=== PATIENT | female | born 2000 | race Caucasian/White ===

== ENCOUNTER 2025-03-09 23:53 | Inpatient (IN) | payer SELFPAY ==
[2025-03-10 00:18] LABS: #Basophils 0.06 10x3/uL (0.0-0.2); #Eosinophils 0.15 10x3/uL (0.0-0.5); #Monocytes 0.86 10x3/uL (0.0-1.1); #Neutrophils 6.07 10x3/uL (1.5-8.4); %Basophils 0.5 % (0.0-2.0); %Eosinophils 1.4 % (0.0-6.0); %Lymphocytes 34.2 % (18.0-47.0); %Monocytes 7.9 % (0.0-10.0); %Neutrophils 55.5 % (40.0-75.0); Hematocrit 39.6 % (34.9-44.5); Hemoglobin 13.2 g/dL (12.0-15.5); Mean Corpuscular Hemoglobin 28.6 pg (27.0-33.0); Mean Corpuscular Volume 85.9 fL (81.6-98.3); Platelet Count 336 10x3/uL (150-450); Red Blood Cell (RBC) Count 4.61 10x6/uL (3.90-5.03); White Blood Cell (WBC) Count 10.92 10x3/uL (3.5-10.5)
[2025-03-10 00:32] LABS: Acetaminophen Less than 10 mcg/mL (Less than 10); Salicylate Less than 8.0 mg/dL (Less than 8.0)
[2025-03-10 00:33] LABS: ALT (SGPT) 16 U/L (Less than 34); AST (SGOT) 21 U/L (11-34); Albumin 4.1 g/dL (3.1-4.5); Alkaline Phosphatase 75 U/L (40-110); Anion Gap 15 mmol/L (10-20); BUN (Urea Nitrogen) 8 mg/dL (7.0-18.7); Bilirubin, Total 0.2 mg/dL (0.3-1.2); Calc. Creatinine Clearance 0 mL/min (70-130); Calcium 8.4 mg/dL (7.8-10.44); Carbon Dioxide 21 mmol/L (22-29); Chloride 111 mmol/L (98-107); Globulin 2.1 g/dL (2.4-3.5); Glucose 93 mg/dL (70-105); Potassium 3.6 mmol/L (3.5-5.1); Sodium 143 mmol/L (136-145)
[2025-03-10 01:10] LABS: Actual Bicarbonate (HCO3a) 21.8 mEq/L (22-28); Analyzer IN Cardio CS ER; Base Excess (BEa) -4.1 mEq/L (-2.0 to +3.0); CO2 Tension 42.9 mmHg (35.0-45.0); Calcium, Ionized (arterial) 1.14 mmol/L (1.12-1.30); Hematocrit-ABG 40 % (36.0-47.0); Hemoglobin (Hb) 13.7 g/dL (12.0-16.0); O2 Tension (PaO2), arterial 270.2 mmHg (80.0-100.0); Potassium - ABG Lab 3.89 mmol/L (3.70-5.30); Puncture Site Left Radial artery; pH, Arterial 7.324 (7.35-7.45)
[2025-03-10 01:13] LABS: ALV-art Gradient 32.675 mmHg (0-20)
[2025-03-10 01:18] LABS: Pregnancy Test - Urine (BHCG) Negative (Negative); Pregu Control Background? CLEAR/WHITE (CLR/WHITE); Pregu Control Bar Appear? YES (CONTROL BAR)
[2025-03-10 01:25] LABS: Cocaine Metabolite Screen Negative (Negative); THC/Cannabinoid Screen PRELIM POSITIVE (Negative); Tricyclic Screen Negative (Negative)
[2025-03-10 03:05] VITALS: BMI 24.8
[2025-03-10] MEDS ORDERED: NS 0.9% w/ 20 MEQ KCL 1,000 ML/1,000 ML BAG IV SCH (03:15)
[2025-03-10] MEDS ORDERED: Fentanyl BOLUS 100 ML IVPB PRN (04:30)
[2025-03-10] MEDS ORDERED: DISCONTINUE PREVIOUS NARCOTIC PAIN MEDICATIONS AND BENZODIAZEPINES FS SCH (04:30)
[2025-03-10] MEDS ORDERED: Propofol BOLUS 1,000 MG/100 ML VIAL IV PRN (04:30)
[2025-03-10 04:56] LABS: Actual Bicarbonate (HCO3a) 22.2 mEq/L (22-28); Analyzer IN Cardio CS ICU; Base Excess (BEa) -3.6 mEq/L (-2.0 to +3.0); CO2 Tension 43.0 mmHg (35.0-45.0); Calcium, Ionized (arterial) 1.17 mmol/L (1.12-1.30); Hematocrit-ABG 42 % (36.0-47.0); Hemoglobin (Hb) 14.2 g/dL (12.0-16.0); O2 Tension (PaO2), arterial 177.2 mmHg (80.0-100.0); Potassium - ABG Lab 4.04 mmol/L (3.70-5.30); Puncture Site Right Radial artery; pH, Arterial 7.331 (7.35-7.45)
[2025-03-10 04:59] LABS: ALV-art Gradient 18.600 mmHg (0-20)
[2025-03-10] MEDS ORDERED: Etomidate 40 MG (20 mL) VIAL ONE (05:00)
[2025-03-10] MEDS ORDERED: Rocuronium Bromide 10 MG/ML (10ML VIAL) ONE (05:00)
[2025-03-10] MEDS: Mupirocin 1 GM TUBE TP SCH (05:07)
[2025-03-10] MEDS ORDERED: FLU (Fluarix Triv) 25-26 (6MOS UP)/PF 45 MCG/0.5 ML Syringe IM ONE (06:00)
[2025-03-10 06:42] LABS: #Basophils 0.05 10x3/uL (0.0-0.2); #Eosinophils 0.08 10x3/uL (0.0-0.5); #Monocytes 0.77 10x3/uL (0.0-1.1); #Neutrophils 7.54 10x3/uL (1.5-8.4); %Basophils 0.4 % (0.0-2.0); %Eosinophils 0.7 % (0.0-6.0); %Lymphocytes 24.5 % (18.0-47.0); %Monocytes 6.8 % (0.0-10.0); %Neutrophils 67.0 % (40.0-75.0); Hematocrit 41.8 % (34.9-44.5); Hemoglobin 13.7 g/dL (12.0-15.5); Mean Corpuscular Hemoglobin 28.8 pg (27.0-33.0); Mean Corpuscular Volume 88.0 fL (81.6-98.3); Platelet Count 254 10x3/uL (150-450); Red Blood Cell (RBC) Count 4.75 10x6/uL (3.90-5.03); White Blood Cell (WBC) Count 11.27 10x3/uL (3.5-10.5)
[2025-03-10 07:18] LABS: Anion Gap 15 mmol/L (10-20); BUN (Urea Nitrogen) 7 mg/dL (7.0-18.7); Calc. Creatinine Clearance 132 mL/min (70-130); Calcium 8.5 mg/dL (7.8-10.44); Carbon Dioxide 22 mmol/L (22-29); Chloride 114 mmol/L (98-107); Glucose 89 mg/dL (70-105); Magnesium 1.8 mg/dL (1.6-2.6); Potassium 3.9 mmol/L (3.5-5.1); Sodium 147 mmol/L (136-145)
[2025-03-10 07:23] VITALS: BP 128/91
[2025-03-10] MEDS: Pantoprazole 40 MG VIAL IVP SCH (09:16)
[2025-03-10] MEDS: Enoxaparin 40 MG (0.4 mL) SYRINGE SC SCH (09:16)
[2025-03-10] MEDS: Ondansetron PF 4 MG/2 ML Vial IVP PRN (09:43)
[2025-03-10] MEDS: Phenol 177 ML BOT PO PRN (09:43)
[2025-03-10 12:57] VITALS: TEMP 98.6
== END 2025-03-10 15:40 | disposition home or self-care (01) | DRG 917 ==
LOC: CSHERS 23:53 → CSHICU 03-10 01:03
PROVIDERS: ADMIT Family Medicine; ATTEND Family Medicine
PROC: 3E0234Z Introduction of Serum, Toxoid and Vaccine into Muscle, Percutaneous Approach (ICD-10-PCS; principal; 2025-03-10)
PROC: 5A1935Z Respiratory Ventilation, Less than 24 Consecutive Hours (ICD-10-PCS; 2025-03-10)
PROC: 0BH17EZ Insertion of Endotracheal Airway into Trachea, Via Natural or Artificial Opening (ICD-10-PCS; 2025-03-10)
PROC: 4A133R1 Monitoring of Arterial Saturation, Peripheral, Percutaneous Approach (ICD-10-PCS; 2025-03-10)
DX: T40.721A Poisoning by synthetic cannabinoids, accidental (unintentional), initial encounter (principal); G93.41 Metabolic encephalopathy; J96.00 Acute respiratory failure, unspecified whether with hypoxia or hypercapnia; F19.10 Other psychoactive substance abuse, uncomplicated; F10.129 Alcohol abuse with intoxication, unspecified; Z79.899 Other long term (current) drug therapy; Z23 Encounter for immunization
CPT/HCPCS: 36415; 36600; 70450; 71045; 80053; 80306; 80307; 81025; 82805; 83735; 85025; 93005; 93010; 94002; 94760; 96374; 96375; J1650; J2405; J2470; J2704; J7120